=== PATIENT | female | born 1985 | race Caucasian/White ===

== ENCOUNTER 2018-10-27 22:26 | Inpatient (IN) | payer MEDICAID, OTHER ==
[~2018-10-27] VITALS: Ht 175.3 cm; Wt 112.4 kg
[2018-10-27 23:53] LABS: BASOPHILS # (AUTO) 0.08 x10^3/uL (0-0.1); BASOPHILS % (AUTO) 1 % (0-1); EOSINOPHILS # (AUTO) 0.28 x10^3/uL (0-0.4); EOSINOPHILS % (AUTO) 3 % (1-7); LYMPHOCYTES # (AUTO) 2.63 x10^3/uL (1-3.4); LYMPHOCYTES % (AUTO) 23 % (22-44); MD NO; MEAN CORPUSCULAR HEMOGLOBIN 31.9 pg (27.0-34.8); MEAN CORPUSCULAR HGB CONC 34.4 g/dL (32.4-35.8); MEAN CORPUSCULAR VOLUME 92.8 fL (80-100); MEAN PLATELET VOLUME 6.9 fL (7.4-10.4); MONOCYTES # (AUTO) 0.67 x10^3/uL (0.2-0.8); MONOCYTES % (AUTO) 6 % (2-9); NEUTROPHILS # (AUTO) 7.77 x10^3/uL (1.8-6.8); NEUTROPHILS % (AUTO) 68 % (42-75); PLATELET COUNT 282 x10^3/uL (130-400); RED BLOOD COUNT 3.96 x10^6/uL (3.82-5.3); RED CELL DISTRIBUTION WIDTH 12.4 % (9.6-15.2)
[2018-10-28 00:01] LABS: ALBUMIN 3.1 g/dL (3.4-5.0); ANION GAP 8 mmol/L (5-15); CALCIUM 8.4 mg/dL (8.5-10.1); CHLORIDE 103 mmol/L (98-107); CREATININE 0.84 mg/dL (0.55-1.02)
[2018-10-28] MEDS ORDERED: LIDOCAINE-MPF 1%, 5ML ONE (00:44)
[2018-10-28] MEDS ORDERED: ZIPRASIDONE 20 MG INJ IM ONE ×2 (01:00→01:02)
[2018-10-28] MEDS ORDERED: KETOROLAC 30 MG/1 ML IM ONE (01:00)
[2018-10-28] MEDS ORDERED: KETOROLAC 30 MG/1 ML ONE (01:02)
[2018-10-28] MEDS ORDERED: PIPERACILLIN/TAZO/PMX 3.375GM 50 ML IVPB ONE (06:00)
[2018-10-28] MEDS ORDERED: VANCOMYCIN PER PHARMACY IV ONE (06:00)
[2018-10-28] MEDS ORDERED: PIPERACILLIN/TAZO/PMX 3.375GM 50 ML ONE (06:21)
[2018-10-28] MEDS ORDERED: VANCOMYCIN 2,000 MG in SODIUM CHLORIDE 0.9% 500 ML IV ONE (06:30)
[2018-10-28] MEDS ORDERED: VANCOMYCIN PER PHARMACY MC PRN (07:30)
[2018-10-28] MEDS ORDERED: ONDANSETRON 2MG/ML, 2ML IVPush PRN (07:30)
[2018-10-28] MEDS ORDERED: MORPHINE SULFATE 4 MG/ML, 1ML IVPush PRN (07:30)
[2018-10-28] MEDS ORDERED: CEFAZOLIN 1,000 MG IM SCH (07:30)
[2018-10-28] MEDS ORDERED: ACETAMINOPHEN 325 MG TABLET PO PRN (07:30)
[2018-10-28 07:58] VITALS: BP 108/71
[2018-10-28] MEDS ORDERED: PHARMACOKINETIC MONITORING MC PRN (10:00)
[2018-10-28] MEDS: VANCOMYCIN 2,000 MG in SODIUM CHLORIDE 0.9% 500 ML IV SCH ×2 (10:00→22:21)
[2018-10-28] MEDS: LACTATED RINGERS 1,000 ML IV SCH ×2 (10:56→19:29)
[2018-10-28] MEDS: NICOTINE 14MG/24 HR PATCH.TD24 TD SCH (10:56)
[2018-10-28] MEDS: CEFAZOLIN PMX 1GM/50ML 50 ML IV SCH ×2 (12:29→20:50)
[2018-10-28 14:00] VITALS: BP 106/69
[2018-10-28] MEDS ORDERED: METHADONE ORAL.SOLN 1 MG/ML PO PRN (17:30)
[2018-10-28] MEDS: KETOROLAC 30 MG/1 ML IV PRN (19:29)
[2018-10-28] MEDS: GABAPENTIN 100 MG CAPSULE PO PRN (19:30)
[2018-10-28] MEDS: METHADONE INTENSOL 10 MG/ML ORAL CONC PO PRN (19:59)
[2018-10-28 20:36] VITALS: BP 108/68
[2018-10-28] MEDS: TRAZODONE 50MG TABLET PO PRN (20:54)
[2018-10-29 02:12] VITALS: BP 107/67
[2018-10-29] MEDS: KETOROLAC 30 MG/1 ML IV PRN ×2 (02:14→10:21)
[2018-10-29] MEDS: CEFAZOLIN PMX 1GM/50ML 50 ML IV SCH ×3 (04:43→20:53)
[2018-10-29] MEDS: LACTATED RINGERS 1,000 ML IV SCH ×3 (04:46→20:52)
[2018-10-29 07:17] LABS: ALBUMIN 2.6 g/dL (3.4-5.0); ANION GAP 7 mmol/L (5-15); CALCIUM 8.3 mg/dL (8.5-10.1); CHLORIDE 112 mmol/L (98-107)
[2018-10-29 07:20] LABS: ALANINE AMINOTRANSFERASE 45 U/L (12-78); ALKALINE PHOSPHATASE 61 U/L (45-117); BILIRUBIN,TOTAL 1.4 mg/dL (0.2-1.0); CREATININE 0.76 mg/dL (0.55-1.02); TOTAL PROTEIN 6.4 g/dL (6.4-8.2)
[2018-10-29 07:21] LABS: BASOPHILS # (AUTO) 0.05 x10^3/uL (0-0.1); BASOPHILS % (AUTO) 1 % (0-1); EOSINOPHILS % (AUTO) 2 % (1-7); LYMPHOCYTES # (AUTO) 2.57 x10^3/uL (1-3.4); LYMPHOCYTES % (AUTO) 28 % (22-44); MD NO; MEAN CORPUSCULAR HEMOGLOBIN 31.1 pg (27.0-34.8); MEAN CORPUSCULAR HGB CONC 33.2 g/dL (32.4-35.8); MEAN CORPUSCULAR VOLUME 93.6 fL (80-100); MEAN PLATELET VOLUME 7.3 fL (7.4-10.4); MONOCYTES # (AUTO) 0.54 x10^3/uL (0.2-0.8); MONOCYTES % (AUTO) 6 % (2-9); NEUTROPHILS # (AUTO) 5.85 x10^3/uL (1.8-6.8); NEUTROPHILS % (AUTO) 64 % (42-75); PLATELET COUNT 228 x10^3/uL (130-400); RED BLOOD COUNT 4.12 x10^6/uL (3.82-5.3); RED CELL DISTRIBUTION WIDTH 12.7 % (9.6-15.2)
[2018-10-29] MEDS: METHADONE INTENSOL 10 MG/ML ORAL CONC PO PRN ×2 (08:01→22:57)
[2018-10-29 08:05] VITALS: BP 130/87
[2018-10-29] MEDS ORDERED: LORazepam 1MG TABLET PO PRN (08:30)
[2018-10-29] MEDS ORDERED: LORazepam 2 MG/ML, 1ML IVPush ONE (09:00)
[2018-10-29] MEDS: NICOTINE 14MG/24 HR PATCH.TD24 TD SCH (10:20)
[2018-10-29] MEDS: VANCOMYCIN 2,000 MG in SODIUM CHLORIDE 0.9% 500 ML IV SCH ×2 (10:21→22:55)
[2018-10-29 13:34] VITALS: BP 125/75
[2018-10-29] MEDS: GABAPENTIN 100 MG CAPSULE PO PRN ×2 (14:20→22:57)
[2018-10-29] MEDS ORDERED: METHADONE INTENSOL 10 MG/ML ORAL CONC PO PRN ×2 (16:00→17:00)
[2018-10-29 20:51] VITALS: BP 114/78
[2018-10-30] MEDS: TRAZODONE 50MG TABLET PO PRN (00:22)
[2018-10-30 02:21] VITALS: BP 115/73
[2018-10-30 04:41] LABS: BASOPHILS # (AUTO) 0.04 x10^3/uL (0-0.1); BASOPHILS % (AUTO) 1 % (0-1); EOSINOPHILS # (AUTO) 0.25 x10^3/uL (0-0.4); EOSINOPHILS % (AUTO) 3 % (1-7); LYMPHOCYTES # (AUTO) 2.34 x10^3/uL (1-3.4); LYMPHOCYTES % (AUTO) 31 % (22-44); MD NO; MEAN CORPUSCULAR HEMOGLOBIN 31.3 pg (27.0-34.8); MEAN CORPUSCULAR HGB CONC 33.1 g/dL (32.4-35.8); MEAN CORPUSCULAR VOLUME 94.5 fL (80-100); MEAN PLATELET VOLUME 7.2 fL (7.4-10.4); MONOCYTES # (AUTO) 0.47 x10^3/uL (0.2-0.8); MONOCYTES % (AUTO) 6 % (2-9); NEUTROPHILS # (AUTO) 4.34 x10^3/uL (1.8-6.8); NEUTROPHILS % (AUTO) 58 % (42-75); PLATELET COUNT 245 x10^3/uL (130-400); RED BLOOD COUNT 3.48 x10^6/uL (3.82-5.3); RED CELL DISTRIBUTION WIDTH 12.6 % (9.6-15.2)
[2018-10-30 04:42] LABS: ALBUMIN 2.4 g/dL (3.4-5.0); ANION GAP 8 mmol/L (5-15); CALCIUM 7.5 mg/dL (8.5-10.1); CHLORIDE 108 mmol/L (98-107); CREATININE 0.83 mg/dL (0.55-1.02)
[2018-10-30] MEDS: CEFAZOLIN PMX 1GM/50ML 50 ML IV SCH ×2 (05:10→13:46)
[2018-10-30] MEDS: LACTATED RINGERS 1,000 ML IV SCH (05:14)
[2018-10-30] MEDS: METHADONE INTENSOL 10 MG/ML ORAL CONC PO PRN ×2 (05:15→11:07)
[2018-10-30 07:32] VITALS: BP 112/82
[2018-10-30] MEDS ORDERED: BISACODYL 5 MG EC TABLET PO SCH (09:00)
[2018-10-30] MEDS: VANCOMYCIN 2,000 MG in SODIUM CHLORIDE 0.9% 500 ML IV SCH (10:32)
[2018-10-30] MEDS: NICOTINE 14MG/24 HR PATCH.TD24 TD SCH (10:32)
[2018-10-30 13:59] VITALS: BP 117/69
[2018-10-30] MEDS ORDERED: METHADONE INTENSOL 10 MG/ML ORAL CONC PO PRN ×2 (20:00)
[2018-10-30 20:02] VITALS: BP 114/67
== END 2018-10-30 20:05 | disposition left against medical advice (07) | DRG 871 ==
LOC: ED 10-28 00:07 → EDIP 10-28 06:41 → 3NW 10-28 07:49
PROVIDERS: ADMIT Hospitalist; ATTEND Internal Medicine
PROC: 0S9C3ZZ Drainage of Right Knee Joint, Percutaneous Approach (ICD-10-PCS; principal; 2018-10-28)
DX: A41.9 Sepsis, unspecified organism (principal); E43 Unspecified severe protein-calorie malnutrition; G92 Toxic encephalopathy; F11.23 Opioid dependence with withdrawal; L03.115 Cellulitis of right lower limb; M00.9 Pyogenic arthritis, unspecified; B19.20 Unspecified viral hepatitis C without hepatic coma; E11.9 Type 2 diabetes mellitus without complications; E66.01 Morbid (severe) obesity due to excess calories; F15.10 Other stimulant abuse, uncomplicated; F17.210 Nicotine dependence, cigarettes, uncomplicated; J45.909 Unspecified asthma, uncomplicated; S83.011A Lateral subluxation of right patella, initial encounter; X58.XXXA Exposure to other specified factors, initial encounter; Y93.89 Activity, other specified; Y92.89 Other specified places as the place of occurrence of the external cause; Y99.8 Other external cause status; Z82.49 Family history of ischemic heart disease and other diseases of the circulatory system; Z86.14 Personal history of Methicillin resistant Staphylococcus aureus infection; M19.90 Unspecified osteoarthritis, unspecified site; F32.9 Major depressive disorder, single episode, unspecified; Z68.36 Body mass index [BMI] 36.0-36.9, adult; Z53.21 Procedure and treatment not carried out due to patient leaving prior to being seen by health care provider
CPT/HCPCS: 36415; 80048; 80053; 80202; 82040; 82945; 83605; 83615; 84157; 84560; 85025; 85651; 85810; 86141; 86803; 87040; 87070; 87205; 87521; 87806; 89050; 89060; 93005; 96365; 96372; 96375; 99285; G0378; J0690; J1885; J2405; J2543; J3370; J3486; G0475; J2060; J7040; J7120

== ENCOUNTER 2018-12-01 07:12 | Emergency (ER) | payer SELFPAY ==
[~2018-12-01] VITALS: Ht 175.3 cm; Wt 109.9 kg
[2018-12-01 07:14] VITALS: BP 128/82
[2018-12-01] MEDS ORDERED: ACETAMINOPHEN 325 MG TABLET ONE (07:26)
[2018-12-01] MEDS ORDERED: ACETAMINOPHEN 325 MG TABLET PO ONE (07:30)
--- NOTE | 2018-12-01 07:43 | NUR ---
Patient/Caregiver given discharge instructions and they have confirmed that they understand the instructions. Patient ambulatory with steady gait.
== END 2018-12-01 07:45 | disposition home or self-care (01) ==
LOC: ED 07:44
DX: H66.003 Acute suppurative otitis media without spontaneous rupture of ear drum, bilateral (principal); H60.503 Unspecified acute noninfective otitis externa, bilateral; E11.9 Type 2 diabetes mellitus without complications; Z72.9 Problem related to lifestyle, unspecified
CPT/HCPCS: 99283

== ENCOUNTER 2019-03-02 06:47 | Inpatient (IN) | payer SELFPAY ==
[~2019-03-02] VITALS: Ht 175.3 cm; Wt 108.4 kg
--- NOTE | 2019-03-02 07:01 | NUR ---
bedside report from Marlin RANDALL, pt care assumed at this time. Pt in bed, MD Randall has assessed pt, awaiting orders. WCTM.
--- NOTE | 2019-03-02 07:35 | NUR ---
PT HAS HAD XRAY, LAB AT BEDSIDE TO DRAW BLOOD, PT IN BED, NAD, WCTM.
--- NOTE | 2019-03-02 07:44 | NUR ---
PT REFUSING BLOOD AT THIS TIME, PT CRYING HYSTERICALLY STATING THAT SHE "CAN'T HANDLE THIS (KNEE) PAIN. I JUST WANT SOMEONE TO KNOCK ME OUT". NOTIFIED, SEE CELESTE FOR INTERVENTION, RN TO GIVE PT ICE PACK FOR KNEE.
[2019-03-02] MEDS ORDERED: KETOROLAC 30 MG/1 ML ONE ×2 (07:45→16:08)
--- NOTE | 2019-03-02 07:58 | NUR ---
bloodwork in lab
[2019-03-02] MEDS ORDERED: KETOROLAC 30 MG/1 ML IM ONE (08:00)
[2019-03-02 08:09] LABS: BASOPHILS # (AUTO) 0.06 x10^3/uL (0-0.1); BASOPHILS % (AUTO) 1 % (0-1); EOSINOPHILS # (AUTO) 0.16 x10^3/uL (0-0.4); EOSINOPHILS % (AUTO) 2 % (1-7); LYMPHOCYTES # (AUTO) 1.58 x10^3/uL (1-3.4); LYMPHOCYTES % (AUTO) 15 % (22-44); MD NO; MEAN CORPUSCULAR HGB CONC 32.8 g/dL (32.4-35.8); MEAN CORPUSCULAR VOLUME 91.4 fL (80-100); MEAN PLATELET VOLUME 7.4 fL (7.4-10.4); MONOCYTES # (AUTO) 0.69 x10^3/uL (0.2-0.8); MONOCYTES % (AUTO) 7 % (2-9); NEUTROPHILS # (AUTO) 8.03 x10^3/uL (1.8-6.8); NEUTROPHILS % (AUTO) 76 % (42-75); PLATELET COUNT 260 x10^3/uL (130-400); RED BLOOD COUNT 4.46 x10^6/uL (3.82-5.3); RED CELL DISTRIBUTION WIDTH 13.9 % (9.6-15.2)
[2019-03-02 08:19] LABS: ALBUMIN 3.3 g/dL (3.4-5.0); ANION GAP 6 mmol/L (5-15); CALCIUM 8.6 mg/dL (8.5-10.1); CHLORIDE 105 mmol/L (98-107); CREATININE 0.72 mg/dL (0.55-1.02)
[2019-03-02] MEDS ORDERED: LIDOCAINE-MPF 1%, 5ML ONE (08:37)
[2019-03-02 08:44] LABS: HCT (SEDRATE) 40.8 % (34.6-47.8)
--- NOTE | 2019-03-02 08:48 | NUR ---
K[place] GIVEN TO MD HART FOR TAP
[2019-03-02] MEDS ORDERED: LIDOCAINE-MPF 1%, 5ML INFIL ONE (09:00)
--- NOTE | 2019-03-02 09:09 | NUR ---
SAMPLE WALKER TO LAB
--- NOTE | 2019-03-02 09:13 | NUR ---
TASK RN: FIRST CONTACT WITH PT. PT RESTING ON GURNEY. SLEEPING INTERMITTENTLY. NO ACUTE DISTRESS NOTED. RESPS EQUAL AND UNLABORED. WILL CONTINUE TO MONITOR.
--- NOTE | 2019-03-02 09:49 | NUR ---
BEDSIDE REPORT TO PRAKASH KELLER, PT CARE TRANSFERRED AT THIS TIME.
--- NOTE | 2019-03-02 09:54 | NUR ---
PT RESTING IN [facility] BUT REQUESTING MORE PAIN MEDS. DR. HART AWARE. VSS.
--- NOTE | 2019-03-02 11:00 | NUR ---
PT RESTING IN [facility] IN NAD. VSS.
--- NOTE | 2019-03-02 11:54 | NUR ---
PER DR. HART, WAITING ON CONSULT FROM DR. CUMMINS WHO IS IN SURGERY TO DECIDE IF PT NEEDS TO BE ADMITTED.
--- NOTE | 2019-03-02 12:15 | NUR ---
PT RESTING IN BED IN NAD. VISIBLE RISE AND FALL OF CHEST OBSERVED. VSS.
[2019-03-02] MEDS ORDERED: VANCOMYCIN 1,600 MG in SODIUM CHLORIDE 0.9% 250 ML IVPB SCH (13:13)
[2019-03-02] MEDS ORDERED: hydrALAzine 20 MG/ML, 1ML IVPush PRN (13:30)
[2019-03-02] MEDS ORDERED: ONDANSETRON ODT 4 MG PO PRN (13:30)
[2019-03-02] MEDS ORDERED: TRAZODONE 50MG TABLET PO PRN (13:30)
[2019-03-02] MEDS ORDERED: ACETAMINOPHEN 325 MG TABLET PO PRN (13:30)
[2019-03-02] MEDS ORDERED: GABAPENTIN 300 MG CAPSULE PO PRN (13:30)
[2019-03-02] MEDS ORDERED: IBUPROFEN 600 MG TABLET PO PRN (13:30)
--- NOTE | 2019-03-02 13:30 | NUR ---
PT TAKEN TO RESTROOM VIA WHEELCHAIR. PT ABLE TO TRANSFER EASILY FROM GURNEY TO WHEELCHAIR WITHOUT ASSIST. VSS.
[2019-03-02] MEDS ORDERED: VANCOMYCIN PMX 1GM/200ML 200 ML IV SCH (14:00)
--- NOTE | 2019-03-02 14:26 | NUR ---
US GUIDED IV STARTED. WILL START ANTIBIOTICS. BLOOD CULTURE X 2 WERE DRAWN ALREADY.
[2019-03-02] MEDS: CEFTAZIDIME PMX 2 GM/50ML 50 ML IV SCH (15:07)
[2019-03-02] MEDS ORDERED: VANCOMYCIN PER PHARMACY MC PRN (15:30)
[2019-03-02] MEDS ORDERED: PHARMACOKINETIC MONITORING MC PRN (15:30)
[2019-03-02] MEDS ORDERED: PHARMACOKINETIC CONSULTATION MC ONE (15:30)
[2019-03-02] MEDS ORDERED: NICOTINE 14MG/24 HR PATCH.TD24 ONE (15:39)
[2019-03-02] MEDS: VANCOMYCIN 2,000 MG in SODIUM CHLORIDE 0.9% 500 ML IV SCH (16:19)
[2019-03-02] MEDS: KETOROLAC 30 MG/1 ML IV PRN ×2 (16:19→22:36)
[2019-03-02] MEDS: NICOTINE 14MG/24 HR PATCH.TD24 TD SCH (16:20)
--- NOTE | 2019-03-02 16:30 | NUR ---
ALL PT BELONGINGS THAT PT BROUGHT WITH HER WERE TAKEN WITH HER FOR TRANSPORT TO THE FLOOR INCLUDING EAR RINGS THAT WERE LEFT IN THE ROOM ON THE COUNTER. EAR RINGS WALKED UP TO PT'S ROOM BY EMT.
[2019-03-02 17:15] VITALS: BP 140/91
[2019-03-02 18:03] LABS: MICROSCOPIC NOT IND
[2019-03-02 18:07] LABS: CULTURE INDICATED? NO
[2019-03-02 18:15] LABS: AMPHETAMINE SCREEN, URINE Positive (Negative); BARBITURATE SCREEN, URINE Negative (Negative); BENZODIAZEPINE SCREEN, URINE Negative (Negative); CANNABINOID SCREEN, URINE Negative (Negative); COCAINE SCREEN, URINE Negative (Negative); METHADONE SCREEN, URINE Negative (Negative); OPIATE SCREEN, URINE Positive (Negative)
[2019-03-02 18:55] VITALS: BP 139/89
[2019-03-02] MEDS: OXYcodone/APAP 5/325MG TABLET PO PRN (19:59)
[2019-03-03] MEDS ORDERED: LORazepam 0.5MG TABLET PO ONE (00:30)
[2019-03-03] MEDS ORDERED: VANCOMYCIN 1,600 MG in SODIUM CHLORIDE 0.9% 250 ML IVPB SCH (01:13)
[2019-03-03 01:21] VITALS: BP 139/96
[2019-03-03] MEDS: CEFTAZIDIME PMX 2 GM/50ML 50 ML IV SCH (03:18)
[2019-03-03] MEDS: VANCOMYCIN 2,000 MG in SODIUM CHLORIDE 0.9% 500 ML IV SCH ×2 (04:06→16:28)
[2019-03-03 06:25] LABS: ANION GAP 8 mmol/L (5-15); CALCIUM 9.3 mg/dL (8.5-10.1); CHLORIDE 109 mmol/L (98-107)
[2019-03-03 06:26] LABS: CREATININE 0.66 mg/dL (0.55-1.02)
[2019-03-03 06:45] LABS: BASOPHILS # (AUTO) 0.01 x10^3/uL (0-0.1); BASOPHILS % (AUTO) 0 % (0-1); EOSINOPHILS # (AUTO) 0.02 x10^3/uL (0-0.4); EOSINOPHILS % (AUTO) 0 % (1-7); LYMPHOCYTES # (AUTO) 1.35 x10^3/uL (1-3.4); LYMPHOCYTES % (AUTO) 13 % (22-44); MD NO; MEAN CORPUSCULAR HGB CONC 33.9 g/dL (32.4-35.8); MEAN CORPUSCULAR VOLUME 91.4 fL (80-100); MEAN PLATELET VOLUME 7.6 fL (7.4-10.4); MONOCYTES # (AUTO) 0.56 x10^3/uL (0.2-0.8); MONOCYTES % (AUTO) 5 % (2-9); NEUTROPHILS # (AUTO) 8.48 x10^3/uL (1.8-6.8); NEUTROPHILS % (AUTO) 81 % (42-75); PLATELET COUNT 265 x10^3/uL (130-400); RED BLOOD COUNT 4.31 x10^6/uL (3.82-5.3); RED CELL DISTRIBUTION WIDTH 13.4 % (9.6-15.2)
[2019-03-03] MEDS ORDERED: CEFTAZIDIME PMX 2 GM/50ML 50 ML IV SCH (08:59)
[2019-03-03] MEDS ORDERED: SENNA/DOCUSATE TABLET PO SCH (09:00)
[2019-03-03] MEDS: NICOTINE 14MG/24 HR PATCH.TD24 TD SCH (13:29)
[2019-03-03] MEDS: OXYcodone/APAP 5/325MG TABLET PO PRN (14:30)
== END 2019-03-03 17:25 | disposition left against medical advice (07) | DRG 550 ==
LOC: ED 08:47 → EDIP 13:25 → 3NE 16:54
PROVIDERS: ADMIT Internal Medicine; ATTEND Internal Medicine
PROC: 0S9D3ZZ Drainage of Left Knee Joint, Percutaneous Approach (ICD-10-PCS; principal; 2019-03-02)
DX: M00.9 Pyogenic arthritis, unspecified (principal); M25.462 Effusion, left knee; D72.829 Elevated white blood cell count, unspecified; B19.20 Unspecified viral hepatitis C without hepatic coma; E11.9 Type 2 diabetes mellitus without complications; Z53.21 Procedure and treatment not carried out due to patient leaving prior to being seen by health care provider; F11.10 Opioid abuse, uncomplicated; M19.90 Unspecified osteoarthritis, unspecified site; Z72.0 Tobacco use; Z82.49 Family history of ischemic heart disease and other diseases of the circulatory system
CPT/HCPCS: 36415; 80048; 80307; 81003; 82040; 82945; 83615; 84157; 84560; 85025; 85651; 86141; 87040; 87070; 87205; 89051; G0378; J1885; J3370; J0713; J7040